=== PATIENT | male | born 1950 | race Caucasian/White ===

== ENCOUNTER → 2020-10-08 07:59 | Outpatient (CLI) | payer MEDICARE, OTHER, SELFPAY ==
[2020-10-08 20:12] LABS: Cholesterol 160 mg/dL (140-199); HDL Cholesterol 30 mg/dL (40-60); LDL Cholesterol Calculated 71 mg/dL (<100); Triglycerides 293 mg/dL (35-150)
[2020-10-08 20:24] LABS: Hematocrit 47.7 % (41-53); Hemoglobin 15.9 g/dL (13.5-17.5); Mean Corpuscular HGB Conc 33.4 % (30-36); Mean Corpuscular Hemoglobin 29.9 PG (26-34); Mean Corpuscular Volume 89.7 fL (80-100); Platelet Count 179 X10^3/uL (150-400); Red Blood Cell Count 5.32 X10^6/uL (4.5-5.9); Red Cell Distribution Width 13.3 % (11.6-14.8); White Blood Cell Count 4.5 X10^3/uL (4.5-11.0)
[2020-10-08 20:48] LABS: Prostate Specific Antigen < 0.064 ng/mL (0.10-4.00)
== END ==
PROVIDERS: PCP Family Medicine; Visit Provider Physician Assistant
DX: E78.1 Pure hyperglyceridemia (principal); H61.20 Impacted cerumen, unspecified ear; Z85.46 Personal history of malignant neoplasm of prostate; L03.115 Cellulitis of right lower limb; R79.89 Other specified abnormal findings of blood chemistry
CPT/HCPCS: 80061; 84153; 85027

== ENCOUNTER → 2020-10-22 11:39 | Outpatient (CLI) | payer MEDICARE, OTHER, SELFPAY ==
[2020-10-22 20:50] LABS: COVID19 - ORCAS (NP or Nasal) Negative (Negative)
== END ==
PROVIDERS: PCP Family Medicine; Referring Provider Family Medicine; Visit Provider Family Medicine
DX: Z01.812 Encounter for preprocedural laboratory examination (principal); Z20.822 Contact with and (suspected) exposure to COVID-19
CPT/HCPCS: C9803; U0003

== ENCOUNTER → 2020-10-30 18:31 | Outpatient (CLI) | payer MEDICARE, OTHER, SELFPAY ==
--- NOTE | 2020-10-30 18:33 | DI.MRI.S_ITS ---
PROCEDURE: MR KNEE RT WO CON INDICATIONS: PAIN IN RIGHT KNEE TECHNIQUE: Noncontrast sagittal PD fast spin echo and T2 fast spin echo with fat saturation, sagittal 3-D FLASH with fat saturation; coronal T1 spin echo and PD fast spin echo with fat saturation, and axial PD fast spin echo with fat saturation through the knee. COMPARISON: [facility], CR, XR KNEE 3 VIEWS RIGHT, 10/16/2020, 11:00. FINDINGS: Image quality: Excellent. Menisci: There is a horizontal oblique tear of the medial meniscal body extending to the middle third of the tibial articular surface. The lateral meniscus is intact. Cruciate ligaments: There is mild mucoid degeneration of the anterior cruciate ligament. The bulk of the ligament fibers are intact. The posterior cruciate ligament is intact. Medial structures: Mild edema is seen surrounding the proximal to mid medial collateral ligament may indicate a low-grade sprain or reactive edema secondary to the adjacent meniscal tear. The semimembranosus tendon insertions and meniscocapsular junction appear intact. Visualized portions of the pes anserinus tendons appear normal. No abnormal bursal fluid. Lateral structures: The lateral collateral ligament, long and short heads of the biceps femoris tendon appear intact. There is mild insertional tendinosis of the popliteus tendon. No signs of posterolateral corner injury. Iliotibial band appears normal. Anterior structures: There is mild patellar tendinosis and distal quadriceps tendinosis. No femoral trochlear dysplasia or ventral trochlear prominence. No edema in the infrapatellar fat pad. Bones and cartilage: No bone marrow contusions or fractures. There is deep cartilage fissuring and delamination in the central weight-bearing portion of the medial femoral condyle. Deep cartilage fissuring is also seen in the central portion of the medial tibial plateau. High-grade partial-thickness cartilage defect is noted in the far posterior portion of the medial femoral condyle. In the lateral compartment, there is deep cartilage fissuring in the central weight-bearing portion of the lateral femoral condyle and in the far posterior portion of the lateral tibial plateau with subchondral edema. Full-thickness cartilage loss is seen in the lateral femoral trochlea with subchondral cystic changes. There is also full-thickness cartilage loss in the lateral facet and median ridge of the patella with subchondral cystic changes and edema. Deep cartilage fissuring is seen in the medial femoral trochlea. Tricompartmental marginal osteophytes are present. Joint space: There is a moderate joint effusion with moderate synovial hypertrophy. A trace medial popliteal cyst is present. A small amount of fluid is seen tracking along the popliteus tendon sheath. A small lobular ganglion cyst is seen adjacent to the origin of the medial head of the gastrocnemius muscle. A small amount of nonspecific prepatellar and pretibial soft tissue edema is present. IMPRESSION: 1. Horizontal oblique tear of the body of the medial meniscus extending to the middle third of the tibial articular surface. 2. Low-grade sprain of the proximal medial collateral ligament. 3. 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 Areas of deep cartilage fissuring and grade 3-4 chondromalacia are seen in the medial and lateral compartments. Tricompartmental marginal osteophytes are present. 4. Mild patellar tendinosis. 5. Moderate joint effusion with moderate synovial hypertrophy. Dictated by: Angelo Murphy M.D. on 10/31/2020 at 10:09 Approved by: Angelo Murphy M.D. on 10/31/2020 at 10:22
== END ==
PROVIDERS: PCP Family Medicine; Referring Provider Orthopaedic Surgery; Visit Provider Orthopaedic Surgery
DX: M25.561 Pain in right knee (principal); S83.241A Other tear of medial meniscus, current injury, right knee, initial encounter; S83.411A Sprain of medial collateral ligament of right knee, initial encounter; M17.11 Unilateral primary osteoarthritis, right knee; M94.262 Chondromalacia, left knee; M25.461 Effusion, right knee
CPT/HCPCS: 73721